=== PATIENT | male | born 1980 | race Caucasian/White ===

== ENCOUNTER 2016-11-25 10:49 | Emergency (ER) | payer SELFPAY ==
[~2016-11-25] VITALS: Ht 170.2 cm; Wt 72.7 kg
[2016-11-25] MEDS ORDERED: HYDROCODONE/ACETAMINOPHEN 5-325 MG TABLET PO ONE ×2 (12:15→15:15)
[2016-11-25] MEDS ORDERED: PERTUSS(ACELL),DIPH,TET VAC/PF 0.5 ML VIAL IM ONE (12:15)
[2016-11-25] MEDS ORDERED: POVIDONE-IODINE 10% 15 ML SOLUTION UD TP ONE (12:30)
[2016-11-25] MEDS ORDERED: LIDOCAINE HCL 1% 10 ML VIAL INJ ONE (13:30)
[2016-11-25 14:28] VITALS: BP 137/86
[2016-11-25] MEDS ORDERED: BACITRACIN 0.9 GM PACKET OINTMENT TP ONE (15:15)
[2016-11-25] MEDS ORDERED: CEPHALEXIN MONOHYDRATE 500 MG CAPSULE PO ONE (15:15)
== END 2016-11-25 15:40 | disposition home or self-care (01) ==
LOC: EMS 10:49
DX: S61.011A Laceration without foreign body of right thumb without damage to nail, initial encounter (principal); X58.XXXA Exposure to other specified factors, initial encounter; Y93.89 Activity, other specified; Y92.89 Other specified places as the place of occurrence of the external cause; Y99.8 Other external cause status
CPT/HCPCS: 12002; 73140; 90471; 90715; 96372; 99284; J0690; J3490